=== PATIENT | female | born 1960 | race Two or more races ===

== ENCOUNTER 2022-04-29 07:57 | Emergency (ER) | payer OTHER ==
[~2022-04-29] VITALS: Ht 165.1 cm; Wt 111.1 kg
[2022-04-29] MEDS ORDERED: LEVOTHYROXINE25 MC2 PO (08:33)
[2022-04-29] MEDS ORDERED: GLUMETZA500 MG PO (08:34)
== END 2022-04-29 19:03 | disposition home or self-care (01) ==
LOC: ER 07:57
DX: R10.32 Left lower quadrant pain (principal); K57.32 Diverticulitis of large intestine without perforation or abscess without bleeding; E11.9 Type 2 diabetes mellitus without complications; Z79.84 Long term (current) use of oral hypoglycemic drugs

== ENCOUNTER 2022-06-26 18:41 | Emergency (ER) | payer OTHER ==
[~2022-06-26] VITALS: Ht 165.1 cm; Wt 88.0 kg
[~2022-06-26 18:41] MED LIST: GLUMETZA500 MG PO; LEVOTHYROXINE25 MC2 PO
[2022-06-26] MEDS ORDERED: PEPCID AC20 MG PO (22:22)
[2022-06-26] MEDS ORDERED: CIPRO500 MG PO (22:22)
[2022-06-26] MEDS ORDERED: LEVSIN/SL0.125 MG SL (22:22)
[2022-06-26] MEDS ORDERED: METRONIDAZOLE500 MG PO (22:22)
== END 2022-06-26 23:30 | disposition home or self-care (01) ==
LOC: ER 18:41
DX: K57.32 Diverticulitis of large intestine without perforation or abscess without bleeding (principal); R10.32 Left lower quadrant pain; E11.9 Type 2 diabetes mellitus without complications; Z79.84 Long term (current) use of oral hypoglycemic drugs; I10 Essential (primary) hypertension